=== PATIENT | male | born 1955 | race Caucasian/White ===

== ENCOUNTER 2017-04-11 22:57 | Emergency (ER) | payer BC ==
[~2017-04-11] VITALS: Ht 165.1 cm; Wt 93.4 kg
[2017-04-11 23:13] VITALS: BP 135/86; PULSE 86; RESP 18; TEMP 98.3; O2SAT 94
[2017-04-11 23:26] VITALS: BP 128/79; PULSE 84; RESP 18; TEMP 98.1; O2SAT 97
== END 2017-04-11 23:26 | disposition home or self-care (01) ==
LOC: SED 22:57
DX: L03.113 Cellulitis of right upper limb (principal); R03.0 Elevated blood-pressure reading, without diagnosis of hypertension; J45.909 Unspecified asthma, uncomplicated
CPT/HCPCS: 99283